=== PATIENT | male | born 1955 | race Native Hawaiian/Other Pacific Islander ===

== ENCOUNTER 2017-04-10 15:34 | Outpatient (CLI) | payer BC | END 2017-04-10 16:35 | disposition home or self-care (01) | LOC: LABW 15:34 | DX: R19.7 Diarrhea, unspecified (principal) | CPT/HCPCS: 82272; 87015; 87045; 87205; 87324; 87328; 87329; 87449; 87899 ==

== ENCOUNTER 2017-08-01 12:01 | Day surgery (SDC) | payer BC ==
[2017-08-01 12:44] LABS: PLATELET COUNT 177 K/uL (142-355)
== END 2017-08-01 16:49 | disposition home or self-care (01) ==
LOC: OR 12:01
PROVIDERS: Internal Medicine Gastroenterology
PROC: 0DBM8ZZ Excision of Descending Colon, Via Natural or Artificial Opening Endoscopic (ICD-10-PCS; principal; 2017-08-01)
PROC: 0DBL8ZZ Excision of Transverse Colon, Via Natural or Artificial Opening Endoscopic (ICD-10-PCS; 2017-08-01)
PROC: 0DBE8ZZ Excision of Large Intestine, Via Natural or Artificial Opening Endoscopic (ICD-10-PCS; 2017-08-01)
DX: D12.4 Benign neoplasm of descending colon (principal); D12.3 Benign neoplasm of transverse colon; K64.8 Other hemorrhoids; R19.4 Change in bowel habit; R19.7 Diarrhea, unspecified
CPT/HCPCS: 80053; 85027; J2001; J2250; J2704; J3010